=== PATIENT | male | born 1995 | race Caucasian/White ===

== ENCOUNTER 2017-10-04 02:13 | Emergency (ER) | payer OTHER ==
[2017-10-04] MEDS ORDERED: Lidocaine 1% PF 5 ML VIAL ONE (02:48)
[2017-10-04] MEDS ORDERED: Bacitracin Zinc 1 Packet ONE (03:34)
== END 2017-10-04 03:41 | disposition home or self-care (01) ==
LOC: ERS 02:13
DX: S01.112A Laceration without foreign body of left eyelid and periocular area, initial encounter (principal); W50.0XXA Accidental hit or strike by another person, initial encounter; Y93.67 Activity, basketball
CPT/HCPCS: 12013; J2001